=== PATIENT | female | born 1960 | race Caucasian/White ===

== ENCOUNTER 2024-06-25 23:38 | Emergency (ER) | payer BC ==
[~2024-06-25] VITALS: Ht 157.5 cm; Wt 56.0 kg
[2024-06-25 23:48] VITALS: BP 149/76; PULSE 85; RESP 18; TEMP 36.7; O2SAT 100
== END 2024-06-26 00:12 | disposition left against medical advice (07) ==
LOC: ER 23:47
DX: S01.451A Open bite of right cheek and temporomandibular area, initial encounter (principal); Z98.890 Other specified postprocedural states; Z53.21 Procedure and treatment not carried out due to patient leaving prior to being seen by health care provider; W54.0XXA Bitten by dog, initial encounter; Y93.89 Activity, other specified; Y92.89 Other specified places as the place of occurrence of the external cause; Y99.8 Other external cause status